=== PATIENT | female | born 1955 ===

== ENCOUNTER 2021-07-15 19:52 | Emergency (ER) | payer BC, MEDICARE, OTHER ==
[2021-07-15] MEDS ORDERED: Sodium Chloride 0.9% 10 ML Syringe FLUSH PRN (21:34)
[2021-07-15] MEDS ORDERED: Sodium Chloride 0.9% 1,000 ML IV ONE (21:34)
[2021-07-15] MEDS ORDERED: Sodium Chloride 0.9% 2.5 ML Syringe FLUSH PRN (21:34)
[2021-07-15 22:57] LABS: BLOOD UREA NITROGEN,BUN 19 mg/dL (7.0-18.0); CARBON DIOXIDE,CO2 25.5 mmol/L (21.0-32.0); CHLORIDE,CL 102 mmol/L (98-107); GLUCOSE RANDOM 134 mg/dL (74-106); SODIUM,NA 138 mmol/L (136-145)
[2021-07-15] MEDS ORDERED: Iopamidol 755 Mg/ML 100 ML Bottle IVPUSH ONE (23:23)
[2021-07-16] MEDS ORDERED: Ciprofloxacin 500 MG Tab PO ONE (00:20)
[2021-07-16] MEDS ORDERED: metroNIDAZOLE 250 MG Tab PO ONE (00:21)
== END 2021-07-16 01:51 | disposition home or self-care (01) ==
LOC: MW.ED 19:52
DX: S52.122A Displaced fracture of head of left radius, initial encounter for closed fracture (principal); K57.32 Diverticulitis of large intestine without perforation or abscess without bleeding; E11.9 Type 2 diabetes mellitus without complications; Z88.0 Allergy status to penicillin; Z79.899 Other long term (current) drug therapy; Z79.84 Long term (current) use of oral hypoglycemic drugs; W18.39XA Other fall on same level, initial encounter
CPT/HCPCS: 29105; 36415; 73080-26-LT; 73080-LT; 74177; 74177-26; 80053; 85025; 85610; 99284-25; A9270-GY; J7030; Q9967

== ENCOUNTER 2022-04-07 06:00 | Day surgery (SDC) | payer BC, MEDICARE ==
[2022-04-07] MEDS ORDERED: fentaNYL 250 MCG/5 ML SDV ONE ×2 (07:28→07:34)
[2022-04-07] MEDS ORDERED: Propofol 200 MG/20 ML SDV ONE (07:28)
[2022-04-07] MEDS ORDERED: Bupivacaine 0.5% 30 ML SDV ONE (07:37)
[2022-04-07] MEDS ORDERED: Lactated Ringers 1,000 ML IV ONE (08:00)
[2022-04-07] MEDS ORDERED: ePHEDrine 50 MG/ML SDV ONE (08:15)
[2022-04-07] MEDS ORDERED: Bacitracin Oint 28.35 GM Tube ONE (09:01)
[2022-04-07] MEDS ORDERED: Rocuronium Bromide 50 MG/5 ML Syringe ONE (09:03)
[2022-04-07] MEDS ORDERED: Sugammadex Sodium 200 MG/2 ML VIAL ONE (09:03)
[2022-04-07] MEDS ORDERED: Ondansetron 4 MG/2 ML SDV ONE (09:03)
== END 2022-04-07 10:41 ==
LOC: MW.SDS 06:00
PROVIDERS: ATTEND Surgery
DX: R22.0 Localized swelling, mass and lump, head (principal); E78.00 Pure hypercholesterolemia, unspecified; I10 Essential (primary) hypertension; E66.01 Morbid (severe) obesity due to excess calories; E11.9 Type 2 diabetes mellitus without complications; Z88.0 Allergy status to penicillin; Z79.899 Other long term (current) drug therapy; Z86.16 Personal history of COVID-19; Z98.890 Other specified postprocedural states; Z68.34 Body mass index [BMI] 34.0-34.9, adult
CPT/HCPCS: 11424; A9270; J0690; J2405; J2704; J3010; J3490; J7120; 00300